=== PATIENT | female | born 2000 | race Caucasian/White ===

== ENCOUNTER → 2023-02-22 09:24 | Outpatient (BNVA) | payer MEDICAID, SELFPAY | PROVIDERS: Family Provider Family Medicine; Visit Provider Obstetrics & Gynecology | DX: Z32.00 Encounter for pregnancy test, result unknown (principal) | CPT/HCPCS: 81025; 84702 ==

== ENCOUNTER → 2023-03-06 09:51 | Outpatient (BNVA) | payer MEDICAID, SELFPAY | PROVIDERS: Family Provider Family Medicine; Visit Provider Obstetrics & Gynecology | DX: Z34.91 Encounter for supervision of normal pregnancy, unspecified, first trimester (principal); Z3A.01 Less than 8 weeks gestation of pregnancy | CPT/HCPCS: 76817; 84315 ==

== ENCOUNTER → 2023-04-05 10:35 | Outpatient (BNVA) | payer MEDICAID, SELFPAY | PROVIDERS: Family Provider Family Medicine; Visit Provider Obstetrics & Gynecology | DX: Z34.90 Encounter for supervision of normal pregnancy, unspecified, unspecified trimester (principal) | CPT/HCPCS: 80307; 82950; 84315; 85027; 86592; 86762; 86803; 86850; 86900; 87086; 87340; 87806 ==

== ENCOUNTER → 2023-05-29 09:07 | Outpatient (BNVA) | payer MEDICAID, SELFPAY | PROVIDERS: Family Provider Family Medicine; Visit Provider Obstetrics & Gynecology | DX: Z34.92 Encounter for supervision of normal pregnancy, unspecified, second trimester (principal); Z3A.18 18 weeks gestation of pregnancy | CPT/HCPCS: 76805 ==

== ENCOUNTER → 2023-07-26 09:55 | Outpatient (BNVA) | payer MEDICAID, SELFPAY | PROVIDERS: Family Provider Family Medicine; Visit Provider Obstetrics & Gynecology | DX: Z34.80 Encounter for supervision of other normal pregnancy, unspecified trimester (principal) | CPT/HCPCS: 82950; 84315; 85025 ==

== ENCOUNTER → 2023-08-09 09:10 | Outpatient (BNVA) | payer MEDICAID, SELFPAY | PROVIDERS: Family Provider Family Medicine; Visit Provider Obstetrics & Gynecology | DX: Z34.80 Encounter for supervision of other normal pregnancy, unspecified trimester (principal) | CPT/HCPCS: 82951; 82952; 84315 ==

== ENCOUNTER 2023-09-19 15:00 | Outpatient (CLI) | payer MEDICAID, SELFPAY ==
[2023-09-19 15:25] VITALS: BMI 41.3
[2023-09-19 15:27] VITALS: BP 121/63; PULSE 97
[2023-09-19 15:48] VITALS: BP 117/64; PULSE 90
== END 2023-09-19 16:18 | disposition home or self-care (01) ==
LOC: OPOB 15:05 → OBGYN 15:08
PROVIDERS: Family Provider Family Medicine; Visit Provider Obstetrics & Gynecology
DX: O26.899 Other specified pregnancy related conditions, unspecified trimester (principal); Z3A.00 Weeks of gestation of pregnancy not specified; R60.0 Localized edema
CPT/HCPCS: 59025; 99211

== ENCOUNTER → 2023-09-27 09:16 | Outpatient (BNVA) | payer MEDICAID, SELFPAY | PROVIDERS: Family Provider Family Medicine; Visit Provider Obstetrics & Gynecology | DX: Z34.80 Encounter for supervision of other normal pregnancy, unspecified trimester (principal) | CPT/HCPCS: 84315; 87081 ==

== ENCOUNTER 2023-10-09 05:10 | Inpatient (IN) | payer MEDICAID, SELFPAY ==
[2023-10-09] VITALS (60 sets, daily range): BP systolic 97–155; BP diastolic 48–87; PULSE 62–110; RESP 16–18; TEMP 36–36.7; O2SAT 97; BMI 41.1
[2023-10-09 05:26] LABS: Nitrazine Paper, PH Negative
[2023-10-09 05:53] LABS: Basophils # 0.1 10^3/uL (0.0-0.1); Basophils % 0.5 %; Eosinophils # 0.2 10^3/uL (0.0-0.8); Eosinophils % 1.3 %; Hematocrit 32.1 % (36-47); Lymphocytes # 2.4 10^3/uL (0.8-4.8); Lymphocytes % 15.4 %; Mean Corpuscular HGB Conc 30.2 g/dL (30-55); Mean Corpuscular Hemoglobin 21.1 pg (27-33); Mean Corpuscular Volume 69.9 fl (85-98); Mean Platelet Volume 11.1 fL (7.4-10.4); Monocytes # 0.8 10^3/uL (0.2-0.9); Monocytes % 5.1 %; Neutrophils # 11.83 10^3/uL (1.8-7.7); Neutrophils % 76.3 %; Nucleated Red Blood Cells % 0 %; Platelet Count 280 10^3/cmm (157-399); Red Blood Count 4.59 10^6/uL (3.85-5.65); Red Cell Distribution Width 17.1 % (12.1-15.1); White Blood Count 15.49 10^3/uL (3.29-11.43)
[2023-10-09] MEDS: dextrose 5%-lactated ringers 1,000 ML 125 ML IV ×2 (06:16→12:11)
[2023-10-09] MEDS: ampicillin 2,000 MG in sodium chloride 0.9% (plus) 50 ML 100 MG IV (06:16)
[2023-10-09] MEDS: lactated ringers 1,000 ML 999 ML IV (07:32)
[2023-10-09] MEDS: ROPivacaine syringe 100 MG/50 ML SYRINGE 10 MG EPIDURAL ×2 (08:00→11:26)
--- NOTE | 2023-10-09 08:01 | P.ANESASSM_ITS ---
Pre-Anesthetic Assessment Height/Weight: Height 1.68 m Weight 115.666 kg Temp Pulse BP O2 Del Method 96.8 F L 80 114/62 Room Air 10/09/23 03:28 10/09/23 07:58 10/09/23 07:58 10/09/23 06:46 Familial anesthetic complications: none Was Beta Sergio taken within 24 hours: N/A Was Clonidine taken within 24 hours: N/A Social No alcohol and No tobacco Exam alert, oriented x 3, clear to auscultation bilaterally and regular rate & rhythm Airway Submandibular: within normal limits Cervical ROM: within normal limits Mallampati: Class II Dentition: full Pulmonary Asthma CV/HEM Anemia Anesthetic Plan ASA status: 2 Anesthesia: Regional (specify below) (Labor epidural) Medications/Allergies Home Medications Medication Instructions Recorded Confirmed Last Taken Type albuterol sulfate 90 mcg/actuation 2 inh inhalation Q6H PRN Shortness 03/06/23 10/09/23 Unknown History breath activated powder inhaler Of Breath Or Wheezing blood-glucose meter (Blood Glucose #1 ea 09/06/23 10/02/23 Unknown Rx Monitoring kit) ferrous fumarate 325 mg (106 mg 325 mg PO DAILY #30 tabs 09/06/23 10/09/23 10/08/23 Rx iron) tablet Allergies Allergy/AdvReac Type Severity Reaction Status Date / Time No Known Allergies Allergy Verified 10/09/23 04:30 Current Medications Generic Name Dose Route Start Last Admin Trade Name Freq PRN Reason Stop Dose Admin Dextrose/Lactated Ringer's 1,000 mls @ 125 mls/hr 10/09/23 05:15 10/09/23 06:16 Dextrose 5%-Lactated Ringers IV 125 mls/hr .Q8H MOY Administration Lactated Ringer's 1,000 mls @ 999 mls/hr 10/09/23 05:08 10/09/23 07:32 Lactated Ringers IV 999 mls/hr .Q1H1M PRN Administration See label comments PFSH Anesthesia Family History Mother Diabetes Hypertension Heart disease Father Hypertension Hyperlipidemia Denies family history of Colon cancer Ovarian cancer CAD (coronary artery disease) Psychiatric illness Chronic kidney disease (CKD) Breast cancer Lung disease Cancer Uterine cancer Thyroid disease Stroke Female Reproductive History : 3 Data Anesthesia 10/09/23 05:38 Short CBC 10/09/23 Range/Units 05:38 WBC 15.49 H (3.29-11.43) 10^3/uL Hgb 9.70 L (11.27-16.99) g/dL Hct 32.1 L (36-47) % MCV 69.9 L (85-98) fl Plt Count 280 (157-399) 10^3/cmm Neut % (Auto) 76.3 % Neut # (Auto) 11.83 H (1.8-7.7) 10^3/uL Blood Bank 10/09/23 05:38 Blood Type O Positive Rho(D) Type Rh positive Antibody Screen Negative Cardiac Studies: 2 No Data to Display Anesthesia Procedures Epidural Time Out Performed: Yes Consents Signed: Procedure Consent Consent: requested by attending/covering physician, from patient, risks and benefits reviewed and patient agrees to proceed Lumbar Level: L3-L4 Epidural position: sitting Epidural procedure: sterile prep of area, 1% lidocaine to numb the area, 18 g needle, neg for paresthesia, test dose given, 1.5% xylocaine 1:200k epi, placed PCEA, no systemic response, sterile dressing applied and 0.2% Ropiavacaine @ mls/hr (10) Additional Comments: NELY at 6cm, cath at 11cm, bolused 5mls 2% lido PF
--- NOTE | 2023-10-09 09:21 | PM.OBGYHP ---
Providers/Chief Complaint Admitting Physician: Juana Pena DO Primary MECHANICAL DRAFTER: Dr. Page Chief Complaint: contractions HPI MECHANICAL DRAFTER History of Present Illness Beth Castaneda is a 23 year old female G3, P2 with ANA MARÍA 10/18/2023 at 38.5 weeks gestation. Patient complained of contractions onset 1120 last night increasing in intensity, at admission contractions were every 2 minutes. Cervix initially was 2 to 3 cm and progressed to 4 cm. Patient now resting well after epidural placement. Cervix now 5 cm / 80%/-2 vertex presentation. AROM?slight pinkish fluid noted. EFM?category 1. Reviewed patient's obstetrical history with her, she has been following fasting blood sugars and 1 hours blood sugars due to her history of gestational diabetes with the first . Her first viable of 7 pounds and her second 8 pounds . She denies complications during this . Present Details : 3 Para: 2 Labs Rubella: Immune RPR: Negative GBS: Unknown Review of Systems Const: Denies: fever(s) Card: Denies: chest pain Resp: Denies: dyspnea GI: Denies: nausea, vomiting, diarrhea or constipation : Reports: vaginal odor, pelvic pain and other (intermittent contractions in abdomen and back); Denies: dysuria, genital pruritis, vaginal bleeding or vaginal discharge Skin/Breast: Denies: breast tenderness Neuro: Denies: headache(s) Psych: Denies: anxiety or depression Medications/Allergies Home Medications Medication Instructions Recorded Confirmed Last Taken Type albuterol sulfate 90 mcg/actuation 2 inh inhalation Q6H PRN Shortness 03/06/23 10/09/23 Unknown History breath activated powder inhaler Of Breath Or Wheezing blood-glucose meter (Blood Glucose #1 ea 09/06/23 10/02/23 Unknown Rx Monitoring kit) ferrous fumarate 325 mg (106 mg 325 mg PO DAILY #30 tabs 09/06/23 10/09/23 10/08/23 Rx iron) tablet Allergies Allergy/AdvReac Type Severity Reaction Status Date / Time No Known Allergies Allergy Verified 10/09/23 04:30 PFSH MECHANICAL DRAFTER PFSH: Family History Mother Diabetes Hypertension Heart disease Father Hypertension Hyperlipidemia Denies family history of Colon cancer Ovarian cancer CAD (coronary artery disease) Psychiatric illness Chronic kidney disease (CKD) Breast cancer Lung disease Cancer Uterine cancer Thyroid disease Stroke Other Female Reproductive History: Hx Age of Menarche: 9 Duration of menses: 3-5 days Date of Last Menstrual Period: 01/11/23 Cycle Length: 28 to 30 days Menstrual flow: normal/abnormal: normal Sexual History: Are you sexually active?: Yes How old were you when you first had sex?: 12 More than 5 How long have you been with your current partner?: 2019 What is your sexual preference?: Heterosexual Hx Sexually Transmitted Diseases: No Have you ever tested positive for HIV?: No Contraception: Contraception History Comment: Depo-Provera March 2022 last used. Personal Safety: Do you feel safe at home: Yes Victim of physical abuse: No Victim of emotional abuse: No Victim of sexual abuse: No Would you like help information on resources?: No History History History 3 Term 2 0 Miscarriages/Ectopic 0 Living Children 2 Care ANA MARÍA Calculator Estimated Delivery Date Method Current WG Current Estimate 10/18/23 LMP (Certain) 38w 5d Other Estimates 10/23/23 Ultrasound #1 38w 0d Expected Delivery Route/Plan planned Vitals/I&O/Wt Last Vital Signs Temp 97.2 F L 10/09/23 09:19 Pulse 110 H 10/09/23 09:10 BP 121/63 10/09/23 09:10 O2 Del Method Room Air 10/09/23 06:46 Weight last 48 hrs Weight 115.666 kg Physical Exam Const: COMMON NORMALS: no acute distress, patient oriented x3, no limitations, healthy appearing, alert and well nourished HENMT: COMMON NORMALS: normocephalic Cardio: COMMON NORMALS: regular rate and regular rhythm Back/Pelvis: OTHER: Abdomen?gravid soft no tenderness to palpation Cervical exam?5 cm / 80%/-2 vertex presentation Extremity: NARRATIVE EXTREMITY EXAM: No edema, negative Homans' sign Neuro: COMMON NORMALS: patient oriented x3, CN's II-XII intact bilaterally and moves all extremities Data 10/09/23 05:38 Results Labs OB ([facility]): Blood Type O Positive 10/09/23 Antibody Screen Negative 10/09/23 Hct 32.1 % (36-47) L 10/09/23 Hgb 9.70 g/dL (11.27-16.99) L 10/09/23 Rho(D) Type Rh positive 10/09/23 Plt Count 280 10^3/cmm (157-399) 10/09/23 Hep Bs Antigen Non-reactive (Nonreactive) 04/05/23 Hepatitis C Antibody Non-reactive (Nonreactive) 04/05/23 Rubella IgG Antibody 49.3 IU/mL (0.0-10.0) H 04/05/23 RPR Nonreactive (Nonreactive) 04/05/23 HIV 1&2 Ab & HIV 1 Ag Non-reactive (Non-Reactiv) 04/05/23 Cystic Fibrosis Screen Negative 04/05/23 Glucose 1 Hr 50 gm 105 mg/dL (85-140) 04/05/23 Gest Glucose Tolerance mg/dL 08/09/23 Ser , Semi-Qnt 4418.00 mIU/mL 02/22/23 HCG, Qual Positive (Negative) H 02/22/23 Urine Opiates Screen Negative ng/mL (Negative) 04/05/23 Ur Barbiturates Screen Negative ng/mL (Negative) 04/05/23 Ur Phencyclidine Scrn Negative ng/mL (Negative) 04/05/23 Ur Amphetamines Screen Negative ng/mL (Negative) 04/05/23 U Benzodiazepines Scrn Negative ng/mL (Negative) 04/05/23 Urine Cocaine Screen Negative ng/mL (Negative) 04/05/23 U Marijuana (THC) Screen Negative ng/mL (Negative) 04/05/23 Micro Urine Specimen 04/05/23 Attestations Medical Necessity Statement*: Admission to labor and delivery management of labor. Coding Level of Care Code Acute Code for Chg Fwd
[2023-10-09] MEDS: ampicillin 1,000 MG in sodium chloride 0.9% (plus) 50 ML 100 MG IV (09:24)
[2023-10-09] MEDS: hyDROXYzine 25 mg Capsule 50 MG PO (11:08)
[2023-10-09] MEDS: oxytocin 30 UNIT/500 ML BAG 600 UNIT IV (12:53)
--- NOTE | 2023-10-09 13:00 | PM.DELIVERY ---
Delivery Note: Date of delivery: October 09, 2023 Pre-delivery diagnoses: 38.5 weeks gestation History of gestational diabetes Procedure: of viable female 7 pounds 5 ounces Apgars 7/9 Delivering Physician: Juana Pena DO Estimated blood loss (mL): 300 Findings: Viable female with nuchal cord x 1 Delivery: A complete dilatation/+1 station patient began to push with contractions. With heart rate in the 80s patient was instructed to continue pushing and vertex presented in a OP presentation with nuchal cord x 1 that was clamped and cut at perineum. The anterior followed by the posterior shoulders delivered with the remainder baby's body to follow. The oral and nasal pathways were bulb suction and with stimulation a robust cry resulted. Cord pH and cord blood was obtained and handed off. The uterus was massaged and the placenta presented in a Hernandez presentation with trailing membranes. The uterus firmed well. IV solutions containing Pitocin was started in a bolus manner. The vaginal vault was explored Post-Delivery Status: Stable History History History 3 Term 3 0 Miscarriages/Ectopic 0 Living Children 3 A&P Assessment and plan (1) 38 weeks gestation of : (2) Normal spontaneous vaginal delivery: Begin recovery and care. (3) Elevated blood sugar: (4) Supervision of other normal : (5) History of gestational diabetes: Coding Level of Care Code Acute Code for Chg Fwd Diagnoses 38 weeks gestation of Z3A.38 Normal spontaneous vaginal delivery O80 Elevated blood sugar R73.9 Supervision of other normal Z34.80 History of gestational diabetes Z86.32
[2023-10-09] MEDS: benzocaine-menthol 78 gm Canister 1 SPRAY TOPICAL (14:38)
[2023-10-09] MEDS: lanolin oint 7 gm 1 APPLIC TOPICAL (14:38)
[2023-10-09] MEDS: ibuprofen 800 mg tablet PO ×2 (14:38→21:06)
--- NOTE | 2023-10-09 15:12 | PC.NURSE ---
Pt up to bathroom. Large void, not in measuring hat. Kelsey care by pt. Pad, underwear, gown changed. Pt then moved to OB9 via wheelchair. Oriented to room/call light.
[2023-10-09] MEDS: docusate sodium 100 mg Capsule PO (17:58)
--- NOTE | 2023-10-09 18:00 | ANE.PACU2 ---
Inpatient post-anesthesia follow up: Airway intact: Yes Vital signs: Temperature 98.1 F Pulse Rate 74 Respiratory Rate 16 Blood Pressure 134/84 Pulse Oximetry Oxygen Delivery Me thod Room Air Oxygen Flow Rate Fraction of Inspir ed Oxygen Hydration adequate: Yes Nausea and vomiting: No Pain level: 2 Mental status: Baseline Additional Comments: Anes start 10/09/23 0745 Anes end 10/09/23 1300
[2023-10-09] MEDS: HYDROcodone-acetaminophen 5-325 mg Tablet PO (22:12)
[2023-10-10 00:27] LABS: Hematocrit 31.1 % (36-47); Mean Corpuscular HGB Conc 28.9 g/dL (30-55); Mean Corpuscular Hemoglobin 21.3 pg (27-33); Mean Corpuscular Volume 73.5 fl (85-98); Mean Platelet Volume 11.3 fL (7.4-10.4); Platelet Count 227 10^3/cmm (157-399); Red Blood Count 4.23 10^6/uL (3.85-5.65); Red Cell Distribution Width 17.1 % (12.1-15.1); White Blood Count 12.89 10^3/uL (3.29-11.43)
[2023-10-10 02:00] VITALS: BP 131/82; PULSE 82; RESP 18; TEMP 36.4; O2SAT 97
[2023-10-10] MEDS: HYDROcodone-acetaminophen 5-325 mg Tablet PO ×2 (07:21→21:14)
[2023-10-10] MEDS: prenatal vitamin Capsule 1 CAP PO (09:11)
[2023-10-10] MEDS: ibuprofen 800 mg tablet PO ×3 (09:11→21:14)
[2023-10-10] MEDS: docusate sodium 100 mg Capsule PO ×2 (09:11→21:14)
[2023-10-10 10:45] VITALS: BP 120/77; PULSE 98; RESP 16; TEMP 36.7; O2SAT 98
[2023-10-10 22:00] VITALS: BP 139/77; PULSE 75; RESP 17; TEMP 36.8; O2SAT 97
[2023-10-11] MEDS: ibuprofen 800 mg tablet PO (09:41)
[2023-10-11] MEDS: HYDROcodone-acetaminophen 5-325 mg Tablet PO (09:41)
[2023-10-11] MEDS: prenatal vitamin Capsule 1 CAP PO (09:41)
[2023-10-11] MEDS: docusate sodium 100 mg Capsule PO (09:41)
--- NOTE | 2023-10-11 09:54 | PM.OBGYDC ---
Discharge Providers [facility] Date of Admission: 10/09/23 05:10 Date of Discharge: 10/11/23 Attending Provider at Admission: Juana Pena DO Attending Provider at Discharge: Juana Pena DO Diagnoses at Discharge Discharge Diagnosis (1) 38 weeks gestation of : Status: Acute (2) Normal spontaneous vaginal delivery: Status: Acute (3) Elevated blood sugar: Status: Acute (4) Supervision of other normal : Status: Acute (5) History of gestational diabetes: Status: Acute Reason for Visit Reason for Visit: contractions Hospital Course Hospital Course Ms. Castaneda is a 23 year old patient with LMP 01/11/23, ANA MARÍA 10/18/23, placing her at 38+5 weeks she came to labor and delivery complaining of contractions. She progressed to have a spontaneous vaginal delivery without complication. and observation has been uneventful. She is afebrile and hemodynamically stable. Tolerating diet well. Ambulating without difficulty. She was counseled regarding pelvic rest for 6 weeks (no sex, no tampons, no vaginal douches). Return to the emergency room if any fever, increased bleeding or pain. Information Peripartum Data: Delivery Method: Vaginal Physical Exam Narrative: GA; alert and oriented x 3 HEENT: normal Breasts: engorged Nipples - skin intact Lungs; clear to auscultation Heart: regular rhythm, no murmurs. Abd: Appropriately tender. BS+. Uterine fundus below umbilicus. No Fundal Tenderness. Perineum: normal lochia. Extremities: no edema, no cyanosis, no tenderness. Urinary Catheter Management: Tellez Latex: Cath Placed During This Visit: yes, but has since been removed by the nurse Reason for Continuing Indwelling Catheter: Decision to DC Catheter Urinary Catheter Date of Insertion: 10/09/23 Urinary Catheter Time of Insertion: 08:25 Date Urinary Catheter Removed: 10/09/23 Time Urinary Catheter Discontinued: 12:34 History History History 3 Term 3 0 Miscarriages/Ectopic 0 Living Children 3 Discharge Data Studies Completed and Pending Laboratory Results WBC 12.89 10^3/uL (3.29-11.43) H 10/10/23 00:15 RBC 4.23 10^6/uL (3.85-5.65) 10/10/23 00:15 Hgb 9.00 g/dL (11.27-16.99) L 10/10/23 00:15 Hct 31.1 % (36-47) L 10/10/23 00:15 MCV 73.5 fl (85-98) L D 10/10/23 00:15 MCH 21.3 pg (27-33) L 10/10/23 00:15 MCHC 28.9 g/dL (30-55) L 10/10/23 00:15 RDW 17.1 % (12.1-15.1) H 10/10/23 00:15 Plt Count 227 10^3/cmm (157-399) 10/10/23 00:15 MPV 11.3 fL (7.4-10.4) H 10/10/23 00:15 Neut % (Auto) 76.3 % 10/09/23 05:38 Lymph % (Auto) 15.4 % 10/09/23 05:38 [place] % (Auto) 5.1 % 10/09/23 05:38 Eos % (Auto) 1.3 % 10/09/23 05:38 Baso % (Auto) 0.5 % 10/09/23 05:38 Neut # (Auto) 11.83 10^3/uL (1.8-7.7) H 10/09/23 05:38 Lymph # (Auto) 2.4 10^3/uL (0.8-4.8) 10/09/23 05:38 [place] # (Auto) 0.8 10^3/uL (0.2-0.9) 10/09/23 05:38 Eos # (Auto) 0.2 10^3/uL (0.0-0.8) 10/09/23 05:38 Baso # (Auto) 0.1 10^3/uL (0.0-0.1) 10/09/23 05:38 Nucleated RBC % (auto) 0 % 10/09/23 05:38 Nucleated RBCs # 0.0 /100WBC 10/09/23 05:38 Fluid pH (paper) Negative 10/09/23 03:10 Blood Type O Positive 10/09/23 05:38 Rho(D) Type Rh positive 10/09/23 05:38 Antibody Screen Negative 10/09/23 05:38 Vitals Last Vital Signs Temp 98.3 F 10/10/23 22:00 Pulse 75 10/10/23 22:00 Resp 17 10/10/23 22:00 BP 139/77 10/10/23 22:00 Pulse Ox 97 10/10/23 22:00 O2 Del Method Room Air 10/10/23 22:00 Results Labs OB ([facility]): Blood Type O Positive 10/09/23 Antibody Screen Negative 10/09/23 Hct 31.1 % (36-47) L 10/10/23 Hgb 9.00 g/dL (11.27-16.99) L 10/10/23 Rho(D) Type Rh positive 10/09/23 Plt Count 227 10^3/cmm (157-399) 10/10/23 Hep Bs Antigen Non-reactive (Nonreactive) 04/05/23 Hepatitis C Antibody Non-reactive (Nonreactive) 04/05/23 Rubella IgG Antibody 49.3 IU/mL (0.0-10.0) H 04/05/23 RPR Nonreactive (Nonreactive) 04/05/23 HIV 1&2 Ab & HIV 1 Ag Non-reactive (Non-Reactiv) 04/05/23 Cystic Fibrosis Screen Negative 04/05/23 Glucose 1 Hr 50 gm 105 mg/dL (85-140) 04/05/23 Gest Glucose Tolerance mg/dL 08/09/23 Ser , Semi-Qnt 4418.00 mIU/mL 02/22/23 HCG, Qual Positive (Negative) H 02/22/23 Urine Opiates Screen Negative ng/mL (Negative) 04/05/23 Ur Barbiturates Screen Negative ng/mL (Negative) 04/05/23 Ur Phencyclidine Scrn Negative ng/mL (Negative) 04/05/23 Ur Amphetamines Screen Negative ng/mL (Negative) 04/05/23 U Benzodiazepines Scrn Negative ng/mL (Negative) 04/05/23 Urine Cocaine Screen Negative ng/mL (Negative) 04/05/23 U Marijuana (THC) Screen Negative ng/mL (Negative) 04/05/23 Micro Urine Specimen 04/05/23 Discharge Plan Discharge Patient Disposition: Home Condition: Stable Prescriptions: New docusate sodium [Colace] 100 mg capsule 100 mg PO BID Qty: 60 0RF acetaminophen 325 mg capsule 325 mg PO Q4H PRN (Reason: fever or pain) Qty: 60 0RF ferrous sulfate [Iron (ferrous sulfate)] 325 mg (65 mg iron) tablet 325 mg PO BID Qty: 60 0RF ibuprofen 800 mg tablet 800 mg PO TID PRN (Reason: pain) Qty: 60 0RF Continued albuterol sulfate 90 mcg/actuation aerosol powdr breath activated 2 inh inhalation Q6H PRN (Reason: Shortness Of Breath Or Wheezing) ferrous fumarate 325 mg (106 mg iron) tablet 325 mg PO DAILY Qty: 30 0RF (DME) blood-glucose meter [Blood Glucose Monitoring] Kit See Rx Instructions .MEDSUPPLY Qty: 1 2RF Rx Instructions: please include lancets, alcohol swabs, and test strips Discharge Orders: Discharge Order (Routine); Ordered 10/11/23 Ordered By: David Uriarte Referrals: David Uriarte MD [Physician] - [facility],Oj Antonio MD [Physician] - 6 Weeks Discharge Diet: Usual diet Discharge Activity: Limit activity as instructed Patient Instructions: Depression (DC), Bleeding (DC), Preeclampsia and Eclampsia After Delivery (GEN), Hemorrhage (GEN), OB Discharge Report, OB Food/Drug Interaction Guide, OB Care at Home, Opioid Safety, OB Home Care, OB Vaginal Deliveries - [facility] Activity Restrictions/Additional Instructions: 1. Please call [facility] clinic on next working day to make your appointment in 6 weeks. 2. Please stay home until you come back to the clinic on first post-hospatilization check up. 3. Please follow instructions on your medications CAREFULLY. 4. If you have abdominal incision, do not cover it unless dressing is necessary because of drainage. OK to shower, but avoid bath. Leave steri-strips until they fall off. If they are still on one week after surgery, you may remove them. 5. If you had vaginal surgery or vaginal repair, Dr. Uriarte may instruct you to take SITZ bath. 6. Yellow, blood tinged odorous vaginal discharge is usually normal after hysterectomy or vaginal surgeries. 7. No SEXUAL INTERCOURSE, tampons, or douches until you are completely released from the post-operative care. 8. Avoid constipation by eating right and maybe using some Metamucil or Milk of Magnesia. 9. All prescription refills are given during the working hours. Please do no wait till it runs out. Call the clinic at [phone] before your medication runs out. The clinic will get in touch with your doctor to prescribe medications if necessary. 10. Please remain within 40 mile radius from our hospital because emergencies do happen now and then during the post-operative period. 11. If you have stairs at home, take one step at a time slowly and minimize the number of trips. It helps to stay in one floor for the next few days. No lifting except what you can lift by one hand until you are released from the post-operative care. 12. Driving is discouraged until you are well healed. It may be 3-4 weeks before you feel strong enough to drive. You should be able to turn and look through the rear window without pain and you should be able to push the brake pedal very hard without pain before you drive. No fast rules, but SAFETY should be your primary concern. DO NOT drive if you are on sedating medications such as narcotics. 13. Call the clinic (during working hours) to make urgent appointment or go to the Emergency room, if any of the following occurs: i. Vaginal bleeding becomes heavy, more than a period. ii. Incision becomes red and sore, or drains pus. iii. Your TEMPERATURE is over 100.4F or you have chill. iv. IV site becomes red and swollen (a little ``knot?? is usually OK) v. Persistent nausea and vomiting vi. Persistent constipation or diarrhea vii. Rash or allergic reaction to medications. Discharge Attestations [facility] Time Spent in Discharge Care*: greater than 30 min Coding Level of Care Code Acute Code for Chg Fwd Diagnoses 38 weeks gestation of Z3A.38 Normal spontaneous vaginal delivery O80 Elevated blood sugar R73.9 Supervision of other normal Z34.80 History of gestational diabetes Z86.32
[2023-10-11 10:00] VITALS: BP 125/85; PULSE 85; RESP 16; TEMP 37; O2SAT 98
[2023-10-11] MEDS: flu vacc pf 2023-24 (6 mos+) 60 MCG IM (11:07)
[2023-10-11 11:15] VITALS: BP 125/85; PULSE 85; RESP 16; TEMP 37; O2SAT 98
== END 2023-10-11 11:30 | disposition home or self-care (01) | DRG 807 ==
LOC: OPOB 05:14 → OBGYN 05:14
PROVIDERS: Admitting Provider Obstetrics & Gynecology; Family Provider Family Medicine; Visit Provider Obstetrics & Gynecology
DX: O69.81X0 Labor and delivery complicated by cord around neck, without compression, not applicable or unspecified (principal); Z37.0 Single live birth; Z3A.38 38 weeks gestation of pregnancy; Z86.32 Personal history of gestational diabetes
CPT/HCPCS: 36415; 51702; 59025; 59409; 83986; 85025; 85027; 86850; 86900; 90471; 90686; 99211; J0290; J2590; J2795; J7120; J7121